=== PATIENT | female | born 1945 | race Caucasian/White ===

== ENCOUNTER → 2024-04-26 13:32 | Outpatient (CLI) | payer MEDICARE, SELFPAY ==
--- NOTE | 2024-04-26 13:33 | DI.MRI.S_ITS ---
PROCEDURE: MR HEAD/BRAIN WO/W CON INDICATIONS: Lesion of brain TECHNIQUE: Noncontrast axial T1 spin echo, axial T2 fast spin echo, sagittal and axial FLAIR, coronal T2 fast spin echo, axial gradient echo, axial diffusion and ADC through the brain. After the administration of contrast, axial and coronal and sagittal T1 spin echo with fat saturation through the brain. COMPARISON: None. FINDINGS: Image quality: Excellent. CSF spaces: Basal cisterns are patent. No extra-axial fluid collections. Ventricles are normal in size and shape. Brain: Several supratentorial enhancing lesions with surrounding edema. For example a 9 millimeter lesion within the right precentral sulcus with surrounding edema (13/131). A 7 millimeter lesion within the right post central sulcus (13/133). A lesion the left occipital lobe measuring 9 millimeters (13/75). Right posterior parietal lesion measuring 9 millimeters (13/109). Right posterior superior temporal lobe lesion measuring 6 millimeters. No midline shift. No intracranial. There is cerebral volume loss for age. There is periventricular white matter chronic small vessel ischemic change. The brainstem appears normal. Diffusion-weighted images demonstrate no acute infarct. No chronic ischemic insults. Normal intravascular flow voids are present. Skull and face: Calvarial marrow is normal in signal. Orbits appear normal. Sinuses: Sinuses and mastoids appear clear. IMPRESSION: Several supratentorial enhancing lesions with surrounding edema measuring up to 9 millimeters. Findings are concerning for metastatic disease. Dictated by: Richard Baird M.D. on 04/27/2024 at 10:30 Approved by: Richard Baird M.D. on 04/27/2024 at 10:35
== END ==
PROVIDERS: Referring Provider Student in an Organized Health Care Education/Training Program; Visit Provider Student in an Organized Health Care Education/Training Program
DX: G93.6 Cerebral edema; G93.9 Disorder of brain, unspecified; H57.9 Unspecified disorder of eye and adnexa
CPT/HCPCS: 70553; A9579

== ENCOUNTER → 2024-08-27 12:00 | Outpatient (CLI) | payer MEDICARE, SELFPAY ==
--- NOTE | 2024-08-27 12:03 | DI.MRI.S_ITS ---
PROCEDURE: MR HEAD/BRAIN WO/W CON INDICATIONS: LUNG CANCER METASTATIC TO BRAIN TECHNIQUE: Noncontrast axial T1 spin echo, axial T2 fast spin echo, sagittal and axial FLAIR, coronal T2 fast spin echo, axial gradient echo, axial diffusion and ADC through the brain. After the administration of contrast, axial and coronal and sagittal T1 spin echo with fat saturation through the brain. COMPARISON: [facility], , MR HEAD/BRAIN WO/W CON, 04/26/2024, 13:50. FINDINGS: Image quality: Excellent. CSF spaces: Basal cisterns are patent. No extra-axial fluid collections. Ventricles are normal in size and shape. Brain: Focal hemosiderin deposition can be seen within the right occipital lobe, which is new compared to the prior examination. At this site, there was previously seen enhancing nodule, which is not seen on the current study. On the prior examination, there were several abnormal enhancing nodules seen. These are now nearly completely resolved, yet with a 1-2 mm focus enhancement seen along the posterior superior right frontal lobe, as on series 13, image 125. No new intracranial nodules. No midline shift. There is cerebral volume loss for age. There is periventricular white matter chronic small vessel ischemic change. The brainstem appears normal. Diffusion-weighted images demonstrate no acute infarct. No chronic ischemic insults. Normal intravascular flow voids are present. Skull and face: Calvarial marrow is normal in signal. Orbits appear normal. Sinuses: Sinuses and mastoids appear clear. IMPRESSION: The previously seen abnormal areas enhancement have nearly completely resolved, with a focus of enhancement measuring 1-2 mm seen. There is new hemosiderin deposition seen within the right occipital lobe, at a site of a previously seen nodule. Dictated by: Manuelito Escudero M.D. on 08/27/2024 at 13:46 Approved by: Manuelito Escudero M.D. on 08/27/2024 at 13:50
== END ==
PROVIDERS: Referring Provider Physician Assistant; Visit Provider Physician Assistant
DX: C79.31 Secondary malignant neoplasm of brain (principal); C34.90 Malignant neoplasm of unspecified part of unspecified bronchus or lung
CPT/HCPCS: 70553; A9579

== ENCOUNTER → 2024-12-07 10:22 | Outpatient (CLI) | payer MEDICARE, OTHER, SELFPAY ==
--- NOTE | 2024-12-07 10:26 | DI.MRI.S_ITS ---
PROCEDURE: MR HEAD/BRAIN WO/W CON INDICATIONS: Malignant neoplasm of unspecified part of unspecif TECHNIQUE: Noncontrast axial T1 spin echo, axial T2 fast spin echo, sagittal and axial FLAIR, coronal T2 fast spin echo, axial gradient echo, axial diffusion and ADC through the brain. After the administration of contrast, axial and coronal and sagittal T1 spin echo with fat saturation through the brain. COMPARISON: [facility], MR, MR HEAD/BRAIN WO/W CON, 08/27/2024, 12:32. [facility], MR, MR HEAD/BRAIN WO/W CON, 04/26/2024, 13:50. FINDINGS: Image quality: Excellent. CSF spaces: Basal cisterns are patent. No extra-axial fluid collections. Ventricles are normal in size and shape. Brain: There is a 2-3 mm focus of faint enhancement along the lateral aspect of the right frontal lobe, as on series 13, image 116. This is not definitely seen on the prior examination. Within the peripheral left frontal lobe, there is a 4-5 mm focus of abnormal enhancement, as on series 13, image 107, which is also new compared to the prior examination. Additional 1 mm focus of faint enhancement can be seen on the left posterior mass, as on series 13, image 99, which also cannot be seen on the prior examination. The previously seen tiny focus of enhancement along the posterior aspect of the right frontal lobe is no longer seen. There is stable hemosiderin deposition seen within the right occipital lobe. No midline shift. There is cerebral volume loss for age. There is periventricular white matter chronic small vessel ischemic change. The brainstem appears normal. Diffusion-weighted images demonstrate no acute infarct. No chronic ischemic insults. Normal intravascular flow voids are present. Relatively prominent perivascular spaces are noted. Skull and face: Calvarial marrow is normal in signal. Orbits appear normal. Sinuses: Sinuses and mastoids appear clear. IMPRESSION: Bilateral foci of faint enhancement seen involving both cerebral hemispheres, which are suspicious for metastatic disease. The previously seen tiny focus of enhancement within the right frontal lobe posteriorly and superiorly is not seen on the current study. This is suggestive of a mixed response. Stable hemosiderin deposition is seen within the right occipital lobe. Dictated by: Manuelito Escudero M.D. on 12/07/2024 at 11:26 Approved by: Manuelito Escudero M.D. on 12/07/2024 at 11:33
== END ==
PROVIDERS: Referring Provider Internal Medicine; Visit Provider Internal Medicine
DX: C79.31 Secondary malignant neoplasm of brain (principal); C34.90 Malignant neoplasm of unspecified part of unspecified bronchus or lung
CPT/HCPCS: 70553; A9579

== ENCOUNTER → 2025-01-28 10:20 | Outpatient (CLI) | payer MEDICARE, OTHER, SELFPAY ==
--- NOTE | 2025-01-28 10:22 | DI.ECHO.S_ITS ---
[facility] : : [address] : : [place] : : [id number] : : Phone: [phone] Echocardiogram Report + + :Name: TAYLOR SILVESTRE Study Date: 01/28/2025 Height: 66 in : :[facility] ReadingLocation: Weight: 145 lb : : Gender: Female BSA: 1.7 m2 : :: 1945 Age: 79 yrs BP: 167/90 mmHg: :Reason For Study: LUNG CANCER, METASTATIC TO BRAIN : :Ordering Physician: QUAN CHOWDHURY MDPerformed By: Silvia Kelly : :Referring: [id number] : + + Interpretation Summary Left ventricular ejection fraction is estimated to be 50 +/- 5%. Left ventricular global longitudinal strain average is -19.4%. There is mild mitral regurgitation. There is mild aortic regurgitation. There is no pericardial effusion. Procedure: A two-dimensional transthoracic echocardiogram with color flow and Doppler was performed. The study quality was technically adequate. There is no prior echocardiogram noted for this patient. The patient was in sinus rhythm with heart rates between 76-83 bpm during the exam. Left Ventricle: The left ventricle is normal in size and wall thickness. Left ventricular global longitudinal strain average is -19.4%. Left ventricular ejection fraction is estimated to be 50 +/- 5%. Right Ventricle: The right ventricle is normal in size and function. Atria: The left atrial size is normal. Right atrial size is normal. There is no Doppler evidence for an interatrial shunt. Mitral Valve: The mitral valve leaflets appear to open well. There is mild mitral regurgitation. Aortic Valve: The aortic valve is trileaflet. The aortic valve opens well. There is no aortic valve stenosis. There is mild aortic regurgitation. Tricuspid Valve: The tricuspid valve leaflets are thin and pliable. There is trace tricuspid regurgitation. Pulmonary artery pressures cannot be estimated because of the lack of a measurable TR jet velocity. Pulmonic Valve: The pulmonic valve leaflets are thin and pliable; valve motion is normal. There is no pulmonic valvular regurgitation. Great Vessels: The aortic root is normal size. The dimensions of the ascending aorta are normal. The IVC is dilated (diameter is greater than 2.1 cm) yet it collapses greater than 50% with a sniff. This suggests a right atrial pressure of 8 mm Hg. Pericardium/ Pleura There is no pericardial effusion. There is no pleural effusion. MMode/2D Measurements & Calculations LVIDd: 5.1 cm LVOT diam: 2.1 cm LVIDs: 3.6 cm Ao root diam: 2.7 cm FS: 29.9 % asc Aorta Diam: 3.3 cm EPSS: 0.55 cm Ao Arch Diam (Prox Trans): 2.3 cm IVSd: 0.60 cm LVPWd: 0.69 cm LV bass. diameter/BSA (cm/m^2): 2.9 LV sys. diameter/BSA (cm/m^2): 2.0 LA A2 area: 17.2 cm2 RA long axis: 4.4 cm LA A4 area: 13.0 cm2 RA area: 13.1 cm2 LA length (vol): 4.1 cm RA vol: 33.4 ml LA vol: 46.0 ml RA : 19.1 ml/m2 LA vol index: 26.4 ml/m2 IVC diam: 2.2 cm RVD1 (basal): 3.2 cm RVD2 (mid): 2.5 cm TAPSE: 2.2 cm Doppler Measurements & Calculations Ao V2 max: 154.6 cm/sec LVOT Max Ananth: 100.1 cm/sec Ao V2 mean: 100.1 cm/sec LV V1 max P.0 mmHg Ao max P.6 mmHg LV V1 VTI: 21.0 cm Ao mean P.6 mmHg FREDDY(I,D): 2.3 cm2 Ao V2 VTI: 31.6 cm FREDDY(V,D): 2.2 cm2 sev ratio: 0.67 FREDDY indexed to BSA (cm^2/m^2): 1.3 AI P1/2t: 516.1 msec AI dec slope: 277.3 cm/sec2 MV E max ananth: 58.1 cm/sec PA V2 max: 69.9 cm/sec MV A max ananth: 80.0 cm/sec PA V2 mean: 49.2 cm/sec MV E/A: 0.73 PA mean P.1 mmHg Med Peak E' Ananth: 5.5 cm/sec PA pr(Accel): 37.9 mmHg E/E' med: 10.6 Lat Peak E' Ananth: 6.3 cm/sec E/E' lat: 9.3 E/e' average: 9.9 MV dec time: 0.16 sec SV(LVOT): 71.7 ml Reading Physician:02:39 PM
== END ==
PROVIDERS: Referring Provider Internal Medicine; Visit Provider Internal Medicine
DX: C34.90 Malignant neoplasm of unspecified part of unspecified bronchus or lung (principal); C79.31 Secondary malignant neoplasm of brain; I34.0 Nonrheumatic mitral (valve) insufficiency; I35.1 Nonrheumatic aortic (valve) insufficiency
CPT/HCPCS: 93306

== ENCOUNTER → 2025-03-02 10:15 | Outpatient (CLI) | payer MEDICARE, OTHER, SELFPAY ==
--- NOTE | 2025-03-02 10:18 | DI.MRI.S_ITS ---
PROCEDURE: MR HEAD/BRAIN WO/W CON INDICATIONS: LUNG CANCER META TO BRAIN TECHNIQUE: Noncontrast axial T1 spin echo, axial T2 fast spin echo, sagittal and axial FLAIR, coronal T2 fast spin echo, axial gradient echo, axial diffusion and ADC through the brain. After the administration of contrast, axial and coronal and sagittal 3D VIBE or T1 spin echo with fat saturation through the brain. COMPARISON: [facility], MR, MR HEAD/BRAIN WO/W CON, 12/07/2024, 10:33. FINDINGS: Image quality: Excellent. CSF Spaces: Basal cisterns are patent. No extra-axial fluid collections. Ventricles are normal in size and shape. Brain: No midline shift. No intracranial bleeds or masses. No abnormal intracranial enhancement. The brainstem appears normal. Diffusion-weighted images demonstrate no acute infarct. No chronic ischemic insults. Normal intravascular flow voids are present. Skull and face: Calvarial marrow is normal in signal. Orbits appear normal. Sinuses: Sinuses and mastoids appear clear. IMPRESSION: No evidence of intracranial metastatic disease. Previously described enhancing nodules have resolved in the interval. Age-appropriate atrophy and white matter chronic ischemic change without acute infarct, hemorrhage or mass lesion Approved by: Lasha Morales M.D. on 03/02/2025 at 11:57
== END ==
PROVIDERS: PCP Student in an Organized Health Care Education/Training Program
DX: C79.31 Secondary malignant neoplasm of brain (principal); C34.90 Malignant neoplasm of unspecified part of unspecified bronchus or lung
CPT/HCPCS: 70553; A9579

== ENCOUNTER → 2025-11-09 10:27 | Outpatient (CLI) | payer MEDICARE, OTHER, SELFPAY ==
--- NOTE | 2025-11-09 10:29 | DI.MRI.S_ITS ---
PROCEDURE: MR HEAD/BRAIN WO/W CON INDICATIONS: Metastasis TECHNIQUE: Noncontrast axial T1 spin echo, axial T2 fast spin echo, sagittal and axial FLAIR, coronal T2 fast spin echo, axial gradient echo, axial diffusion and ADC through the brain. After the administration of contrast, axial and coronal and sagittal T1 spin echo with fat saturation through the brain. COMPARISON: [facility], MR, MR HEAD/BRAIN WO/W CON, 03/02/2025, 10:33. FINDINGS: Image quality: Excellent. CSF spaces: Basal cisterns are patent. No extra-axial fluid collections. Ventricles are normal in size and shape. Brain: There has been interval development of several enhancing lesions with associated edema. Left parietal lobe lesion measuring 7 mm (13/112). Left frontal lesion measuring 5 mm (13/116) right frontal lobe lesion measuring 11 mm (13/123). Medial left frontal lobe lesion posteriorly measuring 10 mm (13/130). Punctate 3 mm left cerebellar hemisphere lesion (13/66). No midline shift. No intracranial bleeds. There is cerebral volume loss for age. There is periventricular white matter chronic small vessel ischemic change. The brainstem appears normal. Diffusion-weighted images demonstrate no acute infarct. No chronic ischemic insults. Normal intravascular flow voids are present. Stable hemosiderin deposition in the right parietal lobe Skull and face: Calvarial marrow is normal in signal. Orbits appear normal. Sinuses: Sinuses and mastoids appear clear. IMPRESSION: Interval development of several intracranial metastatic lesions measuring up to 11 mm with surrounding edema, as described above. No midline shift. These lesions are new compared to prior. Approved by: Richard Baird M.D. on 11/09/2025 at 14:10
== END ==
LOC: MRI 10:29
PROVIDERS: PCP Student in an Organized Health Care Education/Training Program; Referring Provider Radiology Radiation Oncology; Visit Provider Radiology Radiation Oncology
DX: C79.31 Secondary malignant neoplasm of brain (principal); C34.90 Malignant neoplasm of unspecified part of unspecified bronchus or lung; G93.6 Cerebral edema
CPT/HCPCS: 70553; A9579